=== PATIENT | male | born 2000 | race Two or more races ===

== ENCOUNTER 2023-03-31 21:28 | Emergency (ER) | payer OTHER ==
[~2023-03-31] VITALS: Ht 180.3 cm; Wt 90.9 kg
[2023-03-31 21:44] VITALS: BP 130/78
[2023-04-01] MEDS ORDERED: KETOROLAC TROMETH 60MG/2ML VIAL IM ONE (04:30)
[2023-04-01] MEDS ORDERED: IBUP-1456 PO (04:31)
[2023-04-01] MEDS ORDERED: CYCL-837 PO (04:31)
== END 2023-04-01 04:49 | disposition home or self-care (01) ==
LOC: EDBD 21:28 → ER 21:36
DX: S39.012A Strain of muscle, fascia and tendon of lower back, initial encounter (principal); X50.0XXA Overexertion from strenuous movement or load, initial encounter; Y93.89 Activity, other specified; Y92.89 Other specified places as the place of occurrence of the external cause; Y99.8 Other external cause status
CPT/HCPCS: 72100; 96372; 99283; J1885